=== PATIENT | male | born 2005 | race Caucasian/White ===

== ENCOUNTER 2025-03-23 19:26 | Emergency (ER) | payer MEDICAID, SELFPAY ==
[2025-03-23 19:58] VITALS: BP 106/57; PULSE 80; RESP 20; TEMP 36.9; O2SAT 98
[2025-03-23] MEDS: Lidocaine/Epinephri/Tetracaine Topical Gel 3 ML TP (20:14)
--- NOTE | 2025-03-23 21:00 | DI.RAD_ITS ---
Exam(s) XR HIP LT COMPLETE AP PELVIS EXAM: XR HIP LT COMPLETE AP PELVIS CLINICAL HISTORY: fall, concern for fb. TECHNIQUE: 2D digital imaging was performed. Two views. COMPARISON: No exams were available for comparison FINDINGS: BONES: No acute fracture is present. No bony destructive lesion is seen. JOINTS: No dislocation present. The SI joints and pubic symphysis are intact. No significant degenerative changes. SOFT TISSUE: 3 millimeter density overlying the penis and scrotum may represent a foreign body versus external to the patient. No additional opacities are seen. IMPRESSION: No evidence of fracture. 3 millimeter density over the penis/scrotum may represent a foreign body within the soft tissues or may be the external to the patient. DATA REPOSITORY: RADIATION DOSE DELIVERED:
[2025-03-23] MEDS: Cephalexin 500 MG CAP, 4 CAPS/BTL PO (22:30)
--- NOTE | 2025-03-23 23:01 | DI.VRAD_ITS ---
PROCEDURE INFORMATION: Exam: XR Left Hip Exam date and time: 03/23/2025 9:31 PM Age: 19 years old Clinical indication: Injury or trauma; Blunt trauma (contusions or hematomas); Left; Hip and pelvic region; Injury details: Fall, concern for fb TECHNIQUE: Imaging protocol: Radiologic exam of the left hip. Views: 2 or 3 views hip with pelvis when performed. COMPARISON: No relevant prior studies available. FINDINGS: Bones/joints: No fracture or malalignment. No radiopaque foreign bodies are evident in the left hip region although soft tissue assessment is limited by exposure settings on the AP view. On the lateral view of the hip there is a 3 mm radiodensity projecting over the distal penis and scrotum which may be extrinsic although a small foreign body is not excluded. Soft tissues: See Bones/joints finding. IMPRESSION: 1. No osseous injuries. 2. No gross foreign body in the left hip region although soft tissue assessment is limited. 3. A 3 mm radiodensity projects over the distal penis and scrotum on the lateral view, which may be extrinsic or could represent a small foreign body. Dictated and Authenticated by: Kaz Hernandez MD. Orderin Sabrina La MD
--- NOTE | 2025-03-26 18:17 | ED.GENADUL_ITS ---
Discharge Plan Disposition Patient Disposition: Home Condition: Stable Discharge Details Clinical Impression: Laceration of left hip, Multiple lacerations Primary Care Provider: Unknown,Unknown ED Provider: Bessie Bennett Home Meds and New Rx's Prescriptions: New cephalexin 500 mg tablet 500 mg PO Q6H 7 Days Qty: 28 0RF Discharge Instructions Instructions: Taking care of cuts, scrapes, and puncture wounds Additional Instructions: Take antibiotic as prescribed Keep a large bandage with bacitracin over the wound on your hip Wash with soap and water starting tomorrow Sutures will need to be removed in 10 days Please return with spreading redness, fever, worsening pain you may apply Neosporin or bacitracin over the other abrasions you have after washing with soap and water Please return responder redness, fever, worsening pain Discharge Data Discharge Date/Time-TO BE ENTERED AT DEPARTURE: 03/23/25 22:37 HPI General Date/Time Provider Initiated Documentation: 03/23/25 19:44 . HPI Narrative: 19-year-old male presents after a fall while skateboarding downhill. No head injury, neck/back pain, or loss of consciousness. Received tetanus injection prior to arrival. Referred from urgent care for left hip laceration. No puncture wounds, abrasions on both hands. Related Data Home Medications ?Medication ?Instructions ?Recorded ?Confirmed cephalexin 500 mg tablet 500 mg PO Q6H 7 days #28 tab s 03/23/25 Previous Rx's ?Medication ?Instructions ?Recorded cephalexin 500 mg tablet 500 mg PO Q6H 7 days #28 tab s 03/23/25 Allergies Allergy/AdvReac Type Severity Reaction Status Date / Time No Known Allergies Allergy Verified 03/23/25 19:58 General Stated Complaint: Laceration JOSSE: 4 Exam Narrative Exam Narrative: General Appearance: Alert and oriented. Vital signs: Within normal limits. HEENT: Pupils equal, round, reactive to light and accommodation. Respiratory: Within normal limits. Back, Musculoskeletal: No head injury, cervical/thoracic/lumbar spine tenderness. Stable pelvic bone. Hip x-ray normal. No femur tenderness. Bilateral knees, steady gait. Extremities: Abrasions on both hands. Left hip laceration (~1 inch) without foreign body. Skin: Neurovascularly intact. Neurological: GCS 15. Other observations: No abdominal tenderness, rebound, guarding, or trauma. Course Vital Signs Vital signs: Vital Signs Temperature 36.9 C 03/23/25 19:58 Pulse 80 03/23/25 19:58 Respiratory Rate 20 03/23/25 19:58 Blood Pressure 106/57 L 03/23/25 19:58 Pulse Oximetry 98 03/23/25 19:58 Temperature 36.9 C 03/23/25 19:58 Temperature Source Oral 03/23/25 19:58 Pulse 80 03/23/25 19:58 Respiratory Rate 20 03/23/25 19:58 Blood Pressure 106/57 L 03/23/25 19:58 Blood Pressure Position Sitting 03/23/25 19:58 Pulse Oximetry 98 03/23/25 19:58 Oxygen Delivery Method Room Air 03/23/25 19:58 Oxygen Flow Rate 0 03/23/25 19:58 Pain Level 0 03/23/25 19:58 Medical Decision Making Results: Hip x-ray normal. Per radiology interpretation my review Procedure: Three sutures placed to approximate left hip laceration. 3 vertical mattress sutures placed Initial Assessment: 19-year-old male presents after a fall while skateboarding downhill. No helmet, denies head injury, neck/back pain, or loss of consciousness. Abrasions to bilateral hands and left hip laceration. Received tetanus prior to arrival. Alert and oriented. No visible signs of head injury. GCS 15. Pupils equal, round, reactive to light and accommodation. Neurovascularly intact. Pelvic bone stable. Hip x-ray shows no abnormality. No tenderness to femur or knees bilaterally. No abdominal tenderness, rebound, or guarding. Ambulatory with steady gait. ED Course: - Hip x-ray reviewed, no abnormality. - 1% lidocaine with epinephrine, 5 cm? instilled into wound. - Wound irrigated copiously. - 3 sutures placed to loosely approximate site. - Keflex prescribed for infection risk. - Discharged home in stable condition with stable vitals. - Ibuprofen and Tylenol prescribed for pain. Final Assessment: Patient treated for left hip laceration with lidocaine, irrigation, and sutures. Prescribed Keflex. Discharged with stable vitals and pain management plan. No significant injuries from fall. Clinical Impression: - Left hip laceration - Bilateral hand abrasions - Fall-related injuries Disposition: - Discharge: Home in stable condition. - Follow-Up: Sutures removal in 7-10 days. MDM Components Evaluation: - Number of Differential Diagnoses or Management Options: Left hip laceration, bilateral hand abrasions, fall-related injuries. - Amount and Complexity of Data Reviewed: Hip x-ray, physical examination findings. - Risk of Complication and Morbidity or Mortality: Low risk due to stable vitals and no significant injuries. PFSH All Active Problems (Updated 03/23/25 @ 22:02 by SUKHI Diamond) Multiple lacerations (Acute) Laceration of left hip (Acute) Social History Smoking/Tobacco Use Status: Never Smoking risk assessment performed?: Yes Alcohol Intake: never Substance use type: does not use
== END 2025-03-23 22:37 | disposition home or self-care (01) ==
PROVIDERS: Emergency Provider Physician Assistant
DX: S71.012A Laceration without foreign body, left hip, initial encounter (principal); V00.131A Fall from skateboard, initial encounter; S60.512A Abrasion of left hand, initial encounter; S60.511A Abrasion of right hand, initial encounter
CPT/HCPCS: 99283 ×2; 12001; 73502

== ENCOUNTER 2025-05-28 21:09 | Outpatient (REF) | payer MEDICAID, SELFPAY ==
[2025-05-29 22:23] LABS: HIV-1/2 Ag & Ab Screen Negative (Negative)
[2025-05-29 22:26] LABS: Hepatitis A Antibody IgM Negative (Negative); Hepatitis C Ab w Rflx HCV PCR Negative (Negative)
[2025-06-01 11:21] LABS: Syphilis Serology (RPR) Negative (Negative)
[2025-06-01 12:06] LABS: Chlamydia Result Negative (Negative); GC Result Negative (Negative)
== END 2025-05-28 21:10 | disposition home or self-care (01) ==
LOC: LBN 21:09
PROVIDERS: Visit Provider Physician Assistant
DX: Z11.3 Encounter for screening for infections with a predominantly sexual mode of transmission (principal)
CPT/HCPCS: 86704; 86709; 86803; 87340; 87389; 87491; 87591; 86592